=== PATIENT | female | born 2000 | race African-American/Black ===

== ENCOUNTER 2023-09-16 13:15 | Emergency (ER) | payer OTHER ==
[2023-09-16 13:31] VITALS: TEMP 97.9; BMI 21.6
[2023-09-16 15:25] LABS: PH,URINE 6.5 (5.0-8.0); URINE APPEARANCE CLEAR; URINE BILIRUBIN NEGATIVE (NEGATIVE); URINE COLOR YELLOW; URINE GLUCOSE (UA) NEGATIVE (NEGATIVE); URINE KETONE NEGATIVE (NEGATIVE); URINE LEUK ESTERASE NEGATIVE (NEGATIVE); URINE NITRITE NEGATIVE (NEGATIVE); URINE PROTEIN NEGATIVE (NEGATIVE)
[2023-09-16 15:28] LABS: HCG,QUALITATIVE URINE Negative
[2023-09-16 16:17] VITALS: BP 121/68; PULSE 78; RESP 16
== END 2023-09-16 16:49 | disposition home or self-care (01) ==
LOC: JER 13:15
DX: R42 Dizziness and giddiness (principal); R26.2 Difficulty in walking, not elsewhere classified
CPT/HCPCS: 81003; 82962; 84703; 87086; 93005; 93010; 99284-25